=== PATIENT | male | born 1965 ===

== ENCOUNTER 2018-11-26 08:32 | Emergency (ER) | payer BC ==
[~2018-11-26] VITALS: Ht 170.2 cm; Wt 118.2 kg
[2018-11-26 08:44] VITALS: BP 140/85
--- NOTE | 2018-11-26 09:07 | NUR ---
Patient states that he had tingling and numbness left arm starting at 0700 today. Denies injury or trauma.
== END 2018-11-26 09:44 | disposition home or self-care (01) ==
LOC: ER 08:32
DX: R20.0 Anesthesia of skin (principal); R20.2 Paresthesia of skin
CPT/HCPCS: 99281

== ENCOUNTER 2020-03-22 09:54 | Emergency (ER) | payer BC ==
[2020-03-22 10:03] VITALS: BP 169/101
[2020-03-22] MEDS ORDERED: naproxen 500mg tablet PO ONE (11:00)
[2020-03-22] MEDS ORDERED: HYDR-4353 PO (11:03)
== END 2020-03-22 11:27 | disposition home or self-care (01) ==
LOC: ER 09:54
DX: M77.9 Enthesopathy, unspecified (principal); M25.511 Pain in right shoulder; G47.30 Sleep apnea, unspecified; E66.01 Morbid (severe) obesity due to excess calories; Z87.891 Personal history of nicotine dependence; Z79.899 Other long term (current) drug therapy
CPT/HCPCS: 73030; 99283

== ENCOUNTER 2022-10-21 10:04 | Emergency (ER) | payer BC ==
[~2022-10-21] VITALS: Ht 170.2 cm; Wt 118.0 kg
[2022-10-21 10:34] LABS: BASOPHILS % (AUTO) 0.3 % (0-1); EOSINOPHILS # (AUTO) 0.2 X10'3 (0-0.9); EOSINOPHILS % (AUTO) 2.3 % (0-6); HEMATOCRIT 45.9 % (42.0-52.0); HEMOGLOBIN 15.6 g/dl (14.0-17.9); LYMPHOCYTES # (AUTO) 1.8 X10'3 (1.1-4.8); LYMPHOCYTES % (AUTO) 18.2 % (21-51); MEAN CORPUSCULAR HEMOGLOBIN 29.8 PG (27.0-31.0); MEAN CORPUSCULAR HGB CONC 33.9 g/dL (33.0-36.5); MEAN CORPUSCULAR VOLUME 87.9 FL (78-98); MEAN PLATELET VOLUME 7.9 FL (7.4-10.4); MONOCYTES # (AUTO) 0.8 X10'3 (0-0.9); MONOCYTES % (AUTO) 8.1 % (2-12); NEUTROPHILS % (AUTO) 71.1 % (42-75); PLATELET COUNT 308 X10'3 (140-440); RED BLOOD COUNT 5.22 X10'6 (4.70-6.10); RED CELL DISTRIBUTION WIDTH 14.3 % (11.5-14.5); WHITE BLOOD COUNT 9.9 X10'3 (4.5-11.0)
[2022-10-21 10:57] LABS: ALANINE AMINOTRANSFERASE 42 U/L (12-78); ALBUMIN 3.7 G/DL (3.4-5.0); ALBUMIN/GLOBULIN RATIO 0.8 (1.1-1.5); ALKALINE PHOSPHATASE 108 IU/L (46-116); ANION GAP 4 (8-16); ASPARTATE AMINO TRANSFERASE 26 U/L (10-37); BILIRUBIN,TOTAL 0.3 MG/DL (0.1-1.0); BLOOD UREA NITROGEN 12 MG/DL (7-18); BUN/CREATININE RATIO 14.5 (10.0-20.0); CALCIUM 9.6 MG/DL (8.5-10.1); CHLORIDE 102 MMOL/L (99-107); CREATININE 0.83 MG/DL (0.60-1.10); GLUCOSE 86 MG/DL (70-104); SODIUM 137 MMOL/L (135-145); TOTAL CARBON DIOXIDE 31.1 MMOL/L (24-32); TOTAL PROTEIN 8.6 G/DL (6.4-8.2); eGFR > 90 ML/MIN
[2022-10-21 11:04] LABS: MAGNESIUM 2.1 MG/DL (1.5-2.4)
[2022-10-21 12:25] VITALS: BP 144/85
== END 2022-10-21 13:50 | disposition home or self-care (01) ==
LOC: ER 10:04
DX: R07.89 Other chest pain (principal)
CPT/HCPCS: 36415; 71045; 80053; 83735; 83880; 84484; 85025; 93005; 99285